=== PATIENT | male | born 2000 | race Caucasian/White ===

== ENCOUNTER 2018-09-24 21:03 | Emergency (ER) | payer OTHER ==
[~2018-09-24] VITALS: Ht 162.6 cm; Wt 75.0 kg
[2018-09-25 01:11] VITALS: BP 141/62
[2018-09-25] MEDS ORDERED: AUGM875T28 PO (01:37)
[2018-09-25] MEDS ORDERED: NORC1TAB7 PO ×2 (01:39→01:57)
[2018-09-25] MEDS ORDERED: NORCO, ANEXSIA 5/325MG TABLET (HYDROcodone/ACETAMINOPHEN) PO ONE (01:45)
[2018-09-25] MEDS ORDERED: ADACEL/BOOSTRIX VACCINE (DIPHTH/PERTUSS/ACELL/TETANUS)0.5ML SYR (90715) IM ONE (01:45)
== END 2018-09-25 02:10 | disposition home or self-care (01) ==
LOC: M ED 21:03
DX: S02.5XXA Fracture of tooth (traumatic), initial encounter for closed fracture (principal); W22.8XXA Striking against or struck by other objects, initial encounter; Y92.89 Other specified places as the place of occurrence of the external cause